=== PATIENT | male | born 1950 | race Caucasian/White ===

== ENCOUNTER 2017-09-30 15:39 | Emergency (ER) | payer MEDICARE, BC ==
[2017-09-30] MEDS ORDERED: Sodium Chloride 0.9% 10 ML Syringe FLUSH PRN (15:55)
[2017-09-30] MEDS ORDERED: Aspirin 81 MG Tab.Chew PO ONE (15:55)
[2017-09-30] MEDS ORDERED: Clopidogrel 75 MG Tab PO ONE (16:01)
[2017-09-30] MEDS: Nitroglycerin 0.4 MG Tab.SL SL PRN ×3 (16:10→16:28)
[2017-09-30] MEDS ORDERED: Heparin Sodium 5,000 Units/ML Vial IVPUSH ONE (16:18)
[2017-09-30] MEDS ORDERED: Heparin Sodium/D5W 500 ML ONE (16:23)
[2017-09-30 16:29] VITALS: BP 117/57
[2017-09-30] MEDS ORDERED: Heparin Sodium/D5W 25,000 UNITS/500 ML BAG IV SCH (16:30)
--- NOTE | 2017-09-30 16:43 | EDM.PDOC ---
ED HPI GENERAL MEDICAL PROBLEM - General Chief Complaint: Cardiovascular Problem Stated Complaint: CHEST PAIN Time Seen by Provider: 09/30/17 15:52 Source of Information: Reports: Patient History Limitations: Reports: No Limitations - History of Present Illness INITIAL COMMENTS - FREE TEXT/NARRATIVE: This patient comes in complaining of chest pain which started about an hour ago after he walked up some steps. He's been getting these pains for about the past 2 weeks anytime he exerts himself but it previously the pain would go away. Today the pain did not go away. It has subsided to just a little bit by the time he came to the ER and drop down to about a 5 out of 10. It feels like something standing on his chest. He has a history of coronary artery disease and tender 15 years ago had a catheterization which showed some blockage but collaterals had already formed so no intervention was done. About 5 years ago there was another cardiac catheter which was okay. He's not under any kind of treatment for coronary artery disease other than a statin Chest Pain Score (Numeric/FACES): 2 - Related Data Allergies Allergy/AdvReac Type Severity Reaction Status Date / Time No Known Allergies Allergy Verified 09/30/17 15:57 Home Meds: Home Meds Aspirin [Ecotrin] 325 mg PO DAILY 06/03/15 [History] Losartan Potassium 50 mg PO DAILY 06/03/15 [History] Metoprolol Succinate 25 mg PO DAILY 06/03/15 [History] Naproxen 500 mg PO Q12HR 06/03/15 [History] Omeprazole [priLOSEC OTC] 20 mg PO DAILY 06/03/15 [History] Simvastatin [Zocor] 20 mg PO BEDTIME 06/03/15 [History] valACYclovir [Valtrex] 2 gm PO BID PRN 06/03/15 [History] Cetirizine [ZyrTEC] 1 tab PO DAILY 09/30/17 [History] Gabapentin [Neurontin] 1 tab PO DAILY 09/30/17 [History] Past Medical History HEENT History: Reports: Cataract, Hard of Hearing Other HEENT History: deviated septum 25 years ago Cardiovascular History: Reports: CAD, Hypertension Respiratory History: Reports: Sleep Apnea, Other (See Below) Other Respiratory History: cpap machine Musculoskeletal History: Reports: Back Pain, Chronic, Fracture Endocrine/Metabolic History: Reports: Obesity/BMI 30+ Oncologic (Cancer) History: Reports: Basal Cell Carcinoma, Squamous Cell Carcinoma Other Dermatologic History: pre melonoma - Infectious Disease History Infectious Disease History: Reports: Chicken Pox, Measles, Mumps, Shingles - Past Surgical History HEENT Surgical History: Reports: Cataract Surgery, Other (See Below) Other HEENT Surgeries/Procedures: surgery for deviated septum. Other Cardiovascular Surgeries/Procedures: angio gramx2 Neurological Surgical History: Reports: Spinal Fusion Musculoskeletal Surgical History: Reports: Knee Replacement Other Musculoskeletal Surgeries/Procedures:: fusion of C3-C7 in two surgeries, right knee Social & Family History - Tobacco Use Smoking Status *Q: Never Smoker Years of Tobacco use: 20 Used Tobacco, but Quit: Yes Month Tobacco Last Used: september Hand Smoke Exposure: Yes - Alcohol Use Days Per Week of Alcohol Use: 3 Number of Drinks Per Day: 3 Total Drinks Per Week: 9 - Recreational Drug Use Recreational Drug Use: No ED ROS GENERAL - Review of Systems Review Of Systems: See Below Constitutional: Reports: No Symptoms HEENT: Reports: No Symptoms Respiratory: Reports: Shortness of Breath (With exertion) Cardiovascular: Reports: Chest Pain Endocrine: Reports: No Symptoms GI/Abdominal: Reports: No Symptoms : Reports: No Symptoms ED EXAM, GENERAL - Physical Exam Exam: See Below Exam Limited By: No Limitations General Appearance: Alert, Mild Distress, Obese Eye Exam: Bilateral Eye: Normal Inspection Throat/Mouth: Normal Oropharynx Respiratory/Chest: Lungs Clear Cardiovascular: Normal Peripheral Pulses, Regular Rate, Rhythm, No Murmur GI/Abdominal: Non-Tender Extremities: Normal Inspection Neurological: Alert, Oriented Skin Exam: Warm, Dry Course - Vital Signs Last Recorded V/S: Last Vital Signs Temp 36.1 C 09/30/17 15:40 Pulse 57 L 09/30/17 16:30 Resp 15 09/30/17 16:30 BP 117/57 L 09/30/17 16:30 Pulse Ox 95 09/30/17 16:30 - Orders/Labs/Meds Orders: Active Orders 24 hr Category Date Time Status EKG Documentation Completion [RC] ASDIRECTED Care 09/30/17 15:55 Active Heparin Sodium/D5W [Heparin 25,000 Units in D5W 500 ML] Med 09/30/17 16:30 Active 25,000 units in 500 ml IV TITRATE Sodium Chloride 0.9% [Saline Flush] Med 09/30/17 15:55 Active 10 ml FLUSH ASDIRECTED PRN Saline Lock Insert [OM.PC] Urgent Oth 09/30/17 15:54 Ordered EKG 12 Lead [EK] Urgent Ther 09/30/17 15:54 Ordered Medication Orders Heparin Sodium/Dextrose (Heparin 25,000 Units In D5w 500 Ml) 25,000 units in 500 mls @ 20 mls/hr IV TITRATE BOOKER PRN Reason: 1,000 UNITS/HR Last Admin: 09/30/17 16:25 Dose: 1,000 units/hr, 20 mls/hr Sodium Chloride (Saline Flush) 10 ml FLUSH ASDIRECTED PRN PRN Reason: Keep Vein Open Last Admin: 09/30/17 16:13 Dose: 10 ml Labs: Laboratory Tests 09/30/17 09/30/17 Range/Units 15:50 15:54 WBC 15.8 H (4.5-11.0) K/uL RBC 5.06 (4.30-5.90) M/uL Hgb 15.7 H (12.0-15.0) g/dL Hct 46.6 (40.0-54.0) % MCV 92 (80-98) fL MCH 31 (27-31) pg MCHC 34 (32-36) % Plt Count 184 (150-400) K/uL Neut % (Auto) 83 H (36-66) % Lymph % (Auto) 9 L (24-44) % Leon % (Auto) 9 H (2-6) % Eos % (Auto) 0 L (2-4) % Baso % (Auto) 0 (0-1) % Sodium 142 (140-148) mmol/L Potassium 3.9 (3.6-5.2) mmol/L Chloride 106 (100-108) mmol/L Carbon Dioxide 28 (21-32) mmol/L Anion Gap 8.4 (5.0-14.0) mmol/L BUN 18 (7-18) mg/dL Creatinine 0.9 (0.8-1.3) mg/dL Est Cr Clr Drug Dosing 86.22 mL/min Estimated GFR (MDRD) > 60 (>60) Glucose 129 H (74-106) mg/dL Calcium 8.7 (8.5-10.1) mg/dL Total Bilirubin 0.3 (0.2-1.0) mg/dL AST 17 (15-37) U/L ALT 31 (12-78) U/L Alkaline Phosphatase 80 (46-116) U/L Troponin I 0.062 H* (0.000-0.056) ng/mL Total Protein 7.1 (6.4-8.2) g/dL Albumin 3.9 (3.4-5.0) g/dL Globulin 3.2 (2.3-3.5) g/dL Albumin/Globulin Ratio 1.2 (1.2-2.2) Meds: Medications Generic Name Dose Route Start Last Admin Trade Name Freq PRN Reason Stop Dose Admin Heparin Sodium/Dextrose 25,000 units in 500 mls @ 20 mls/hr 09/30/17 16:30 16:25 Heparin 25,000 Units In D5w 500 Ml IV 1,000 units/hr TITRATE BOOKER 20 mls/hr 1,000 UNITS/HR Administration Sodium Chloride 10 ml 09/30/17 15:55 09/30/17 16:13 Saline Flush FLUSH 10 ml ASDIRECTED PRN Administration Keep Vein Open Discontinued Medications Generic Name Dose Route Start Last Admin Trade Name Freq PRN Reason Stop Dose Admin Aspirin 324 mg 09/30/17 15:55 09/30/17 16:08 Aspirin PO 09/30/17 15:56 324 mg ONETIME ONE Administration Clopidogrel Bisulfate 600 mg 09/30/17 16:01 09/30/17 16:15 Plavix PO 09/30/17 16:02 600 mg ONETIME ONE Administration Heparin Sodium (Porcine) 5,000 units 09/30/17 16:18 09/30/17 16:24 Heparin Sodium IVPUSH 09/30/17 16:19 5,000 units ONETIME ONE Administration Heparin Sodium/Dextrose Confirm 09/30/17 16:23 09/30/17 16:26 Heparin 25,000 Units In D5w 500 Ml Administered 09/30/17 16:24 Not Given Dose 500 mls @ as directed .ROUTE .STK-MED ONE Nitroglycerin 0.4 mg 09/30/17 15:56 09/30/17 16:28 Nitrostat SL 0.4 mg Q5M PRN Administration Chest Pain - Re-Assessments/Exams Free Text/Narrative Re-Assessment/Exam: 09/30/17 16:42 EKG showed sinus rhythm at 63 bpm. There is loss of R-wave height in V1 through V3. There is about 1-[address] depression in lateral leads. There is no ST elevation anywhere. Treatment course: EKG showed findings as above. The patient received aspirin 324 mg chewed. He also received 3 sublingual nitros. The pain was down to a 1 at the time the third one was administered. Brilenta was not available here so he received Plavix 600 mg orally. He also received heparin 5000 unit bolus then he'll receive a drip in the by EMS. Case was discussed with the diet consultant at [facility] in [place] as well as the hospitalist . Troponin returned at 0.062 (normal less than 0.056) information was relayed to Dr. Macias 09/30/17 16:49 Departure - Departure Time of Disposition: 16:50 Disposition: DC/Tfer to [facility] 02 Reason for Transfer *Q: Primary PCI Indicated Clinical Impression: Acute coronary syndrome Referrals: Siddharth Domínguez MD [Primary Care Provider] - Forms: ED Department Discharge - My Orders Last 24 Hours: My Active Orders 09/30/17 15:54 Saline Lock Insert [OM.PC] Urgent EKG 12 Lead [EK] Urgent 09/30/17 15:55 EKG Documentation Completion [RC] ASDIRECTED Sodium Chloride 0.9% [Saline Flush] 10 ml FLUSH ASDIRECTED PRN 09/30/17 16:30 Heparin Sodium/D5W [Heparin 25,000 Units in D5W 500 ML] 25,000 units in 500 ml IV TITRATE - Assessment/Plan Last 24 Hours: My Active Orders 09/30/17 15:54 Saline Lock Insert [OM.PC] Urgent EKG 12 Lead [EK] Urgent 09/30/17 15:55 EKG Documentation Completion [RC] ASDIRECTED Sodium Chloride 0.9% [Saline Flush] 10 ml FLUSH ASDIRECTED PRN 09/30/17 16:30 Heparin Sodium/D5W [Heparin 25,000 Units in D5W 500 ML] 25,000 units in 500 ml IV TITRATE
== END 2017-09-30 16:40 ==
LOC: JP.ED 15:39
DX: I24.9 Acute ischemic heart disease, unspecified (principal); I10 Essential (primary) hypertension; Z79.82 Long term (current) use of aspirin; Z79.899 Other long term (current) drug therapy
CPT/HCPCS: 36415; 80053; 84484; 85025; 93005; 96374; 99285; A9270; J1644; J7050; 93010; 99284

== ENCOUNTER 2017-10-14 01:34 | Emergency (ER) | payer MEDICARE, BC ==
[2017-10-14] MEDS ORDERED: Aspirin 81 MG Tab.Chew PO ONE (01:43)
[2017-10-14] MEDS ORDERED: Ondansetron 4 MG/2 ML SDV IVPUSH ONE (01:44)
[2017-10-14] MEDS ORDERED: Sodium Chloride 0.9% 1,000 ML IV SCH (01:45)
[2017-10-14] MEDS ORDERED: Alum Hydrox/Mag Hydrox/Simeth 15 ML, Lidocaine 2% 15 ML PO ONE ×2 (01:45)
--- NOTE | 2017-10-14 02:32 | EDM.PDOC ---
ED HPI GENERAL MEDICAL PROBLEM - General Chief Complaint: Chest Pain Stated Complaint: CHEST PAINS Time Seen by Provider: 10/14/17 01:45 Source of Information: Reports: Patient History Limitations: Reports: No Limitations - History of Present Illness INITIAL COMMENTS - FREE TEXT/NARRATIVE: pt hd 3 stents placed on Malka Almaraz, He developed chest pain tonight after eating a big meal of crab. he did vomit a large --=300cc emesis. He has pain in the epigastric area and rt upper abdoman. Onset: Today, Other ( Started about midnight. ) Duration: Hour(s): Location: Reports: Chest, Abdomen, Other ( Pt has pain in the upper abdoman and lower chest. ) Associated Symptoms: Reports: Chest Pain, Nausea/Vomiting epigastric Pain Score (Numeric/FACES): 3 - Related Data Allergies Allergy/AdvReac Type Severity Reaction Status Date / Time No Known Allergies Allergy Verified 10/14/17 01:43 Home Meds: Home Meds Aspirin [Ecotrin] 325 mg PO DAILY 06/03/15 [History] Losartan Potassium 50 mg PO DAILY 06/03/15 [History] Metoprolol Succinate 25 mg PO DAILY 06/03/15 [History] Naproxen 500 mg PO Q12HR 06/03/15 [History] Omeprazole [priLOSEC OTC] 20 mg PO DAILY 06/03/15 [History] Simvastatin [Zocor] 20 mg PO BEDTIME 06/03/15 [History] valACYclovir [Valtrex] 2 gm PO BID PRN 06/03/15 [History] Cetirizine [ZyrTEC] 1 tab PO DAILY 09/30/17 [History] Gabapentin [Neurontin] 1 tab PO DAILY 09/30/17 [History] Past Medical History HEENT History: Reports: Cataract, Hard of Hearing Other HEENT History: deviated septum 25 years ago Cardiovascular History: Reports: CAD, Hypertension, [place] Respiratory History: Reports: Sleep Apnea, Other (See Below) Other Respiratory History: cpap machine Musculoskeletal History: Reports: Back Pain, Chronic, Fracture Endocrine/Metabolic History: Reports: Obesity/BMI 30+ Oncologic (Cancer) History: Reports: Basal Cell Carcinoma, Squamous Cell Carcinoma Other Dermatologic History: pre melonoma - Infectious Disease History Infectious Disease History: Reports: Chicken Pox, Measles, Mumps, Shingles - Past Surgical History HEENT Surgical History: Reports: Cataract Surgery, Other (See Below) Other HEENT Surgeries/Procedures: surgery for deviated septum. Cardiovascular Surgical History: Reports: Coronary Artery Stent Other Cardiovascular Surgeries/Procedures: angio gramx2 Neurological Surgical History: Reports: Spinal Fusion Musculoskeletal Surgical History: Reports: Knee Replacement Other Musculoskeletal Surgeries/Procedures:: fusion of C3-C7 in two surgeries, right knee Social & Family History - Tobacco Use Smoking Status *Q: Never Smoker Years of Tobacco use: 20 Used Tobacco, but Quit: Yes Month Tobacco Last Used: september Hand Smoke Exposure: Yes - Caffeine Use Caffeine Use: Reports: Soda - Alcohol Use Days Per Week of Alcohol Use: 2 Number of Drinks Per Day: 3 Total Drinks Per Week: 6 - Recreational Drug Use Recreational Drug Use: No ED ROS GENERAL - Review of Systems Review Of Systems: See Below Constitutional: Reports: No Symptoms HEENT: Reports: No Symptoms Respiratory: Reports: No Symptoms Cardiovascular: Reports: No Symptoms Endocrine: Reports: No Symptoms GI/Abdominal: Reports: Abdominal Pain, Nausea, Vomiting, Other (lower chest pain , He had 3 stents placed [place]. ) : Reports: No Symptoms Musculoskeletal: Reports: Hand Pain Skin: Reports: No Symptoms ED EXAM, GENERAL - Physical Exam Exam: See Below Free Text/Narrative:: pt arrived with pain in his lower chest and upper abdoman. He had eaten a large meal of crab. Exam Limited By: No Limitations General Appearance: Alert, Moderate Distress Ears: Normal TMs Nose: Normal Inspection Throat/Mouth: Normal Inspection Head: Atraumatic Neck: Normal Inspection Respiratory/Chest: No Respiratory Distress Cardiovascular: Regular Rate, Rhythm GI/Abdominal: Other ( tender in the upper abdoman in the mid line and in the rt upper abdoman. ) (Male) Exam: Deferred Rectal (Males) Exam: Deferred Back Exam: Normal Inspection Extremities: Normal Inspection Neurological: Alert, Oriented, Normal Cognition Psychiatric: Anxious Course - Vital Signs Last Recorded V/S: Last Vital Signs Temp 36.2 C 10/14/17 01:44 Pulse 57 L 10/14/17 01:44 Resp 15 10/14/17 05:12 BP 134/64 10/14/17 05:12 Pulse Ox 92 L 10/14/17 05:12 - Orders/Labs/Meds Orders: Active Orders 24 hr Category Date Time Status EKG Documentation Completion [RC] ASDIRECTED Care 10/14/17 01:43 Active Abdomen Ltd [US] Stat Exams 10/14/17 02:47 Ordered Chest 1V Frontal [CR] Stat Exams 10/14/17 02:36 Taken Sodium Chloride 0.9% [Normal Saline] 1,000 ml Med 10/14/17 01:45 Active IV ASDIRECTED EKG 12 Lead [EK] Routine Ther 10/14/17 01:43 Ordered Medication Orders Sodium Chloride (Normal Saline) 1,000 mls @ 200 mls/hr IV ASDIRECTED BOOKER Last Admin: 10/14/17 01:58 Dose: 200 mls/hr Labs: Laboratory Tests 10/14/17 10/14/17 10/14/17 Range/Units 01:53 01:53 01:53 WBC 9.9 (4.5-11.0) K/uL RBC 4.80 (4.30-5.90) M/uL Hgb 14.4 (12.0-15.0) g/dL Hct 42.9 (40.0-54.0) % MCV 89 (80-98) fL MCH 30 (27-31) pg MCHC 34 (32-36) % Plt Count 327 (150-400) K/uL Neut % (Auto) 72 H (36-66) % Lymph % (Auto) 15 L (24-44) % [place] % (Auto) 10 H (2-6) % Eos % (Auto) 2 (2-4) % Baso % (Auto) 0 (0-1) % Sodium 142 (140-148) mmol/L Potassium 3.8 (3.6-5.2) mmol/L Chloride 104 (100-108) mmol/L Carbon Dioxide 26 (21-32) mmol/L Anion Gap 12.0 (5.0-14.0) mmol/L BUN 11 (7-18) mg/dL Creatinine 1.0 (0.8-1.3) mg/dL Est Cr Clr Drug Dosing TNP Estimated GFR (MDRD) > 60 (>60) Glucose 133 H (74-106) mg/dL Calcium 8.6 (8.5-10.1) mg/dL Total Bilirubin 0.3 (0.2-1.0) mg/dL AST 23 (15-37) U/L ALT 36 (12-78) U/L Alkaline Phosphatase 83 (46-116) U/L Creatine Kinase 76 (39-308) U/L Troponin I < 0.017 (0.000-0.056) ng/mL Total Protein 6.6 (6.4-8.2) g/dL Albumin 3.3 L (3.4-5.0) g/dL Globulin 3.3 (2.3-3.5) g/dL Albumin/Globulin Ratio 1.0 L (1.2-2.2) Lipase (73-393) U/L Urine Color Urine Appearance Urine pH (4.5-8.0) Ur Specific [place] (1.008-1.030) Urine Protein (NEGATIVE) mg/dL Urine Glucose (UA) (NEGATIVE) mg/dL Urine Ketones (NEGATIVE) mg/dL Urine Occult Blood (NEGATIVE) Urine Nitrite (NEGAITVE) Urine Bilirubin (NEGATIVE) Urine Urobilinogen (NORMAL) mg/dL Ur Leukocyte Esterase (NEGATIVE) Urine RBC (0-5) Urine WBC (0-5) Ur Epithelial Cells Amorphous Sediment Urine Bacteria Urine Mucus 10/14/17 10/14/17 10/14/17 Range/Units 01:57 02:48 06:01 WBC (4.5-11.0) K/uL RBC (4.30-5.90) M/uL Hgb (12.0-15.0) g/dL Hct (40.0-54.0) % MCV (80-98) fL MCH (27-31) pg MCHC (32-36) % Plt Count (150-400) K/uL Neut % (Auto) (36-66) % Lymph % (Auto) (24-44) % [place] % (Auto) (2-6) % Eos % (Auto) (2-4) % Baso % (Auto) (0-1) % Sodium (140-148) mmol/L Potassium (3.6-5.2) mmol/L Chloride (100-108) mmol/L Carbon Dioxide (21-32) mmol/L Anion Gap (5.0-14.0) mmol/L BUN (7-18) mg/dL Creatinine (0.8-1.3) mg/dL Est Cr Clr Drug Dosing Estimated GFR (MDRD) (>60) Glucose (74-106) mg/dL Calcium (8.5-10.1) mg/dL Total Bilirubin (0.2-1.0) mg/dL AST (15-37) U/L ALT (12-78) U/L Alkaline Phosphatase (46-116) U/L Creatine Kinase (39-308) U/L Troponin I < 0.017 (0.000-0.056) ng/mL Total Protein (6.4-8.2) g/dL Albumin (3.4-5.0) g/dL Globulin (2.3-3.5) g/dL Albumin/Globulin Ratio (1.2-2.2) Lipase 143 (73-393) U/L Urine Color Yellow Urine Appearance Clear Urine pH 5.0 (4.5-8.0) Ur Specific [place] 1.020 (1.008-1.030) Urine Protein Negative (NEGATIVE) mg/dL Urine Glucose (UA) Normal (NEGATIVE) mg/dL Urine Ketones Negative (NEGATIVE) mg/dL Urine Occult Blood Negative (NEGATIVE) Urine Nitrite Negative (NEGAITVE) Urine Bilirubin Negative (NEGATIVE) Urine Urobilinogen Normal (NORMAL) mg/dL Ur Leukocyte Esterase Negative (NEGATIVE) Urine RBC Not seen (0-5) Urine WBC Not seen (0-5) Ur Epithelial Cells Not seen Amorphous Sediment Not seen Urine Bacteria Not seen Urine Mucus Few Meds: Medications Generic Name Dose Route Start Last Admin Trade Name Cecilio PRN Reason Stop Dose Admin Sodium Chloride 1,000 mls @ 200 mls/hr 10/14/17 01:45 10/14/17 01:58 Normal Saline IV 200 mls/hr ASDIRECTED BOOKER Administration Discontinued Medications Generic Name Dose Route Start Last Admin Trade Name Frepetra PRN Reason Stop Dose Admin Aspirin 324 mg 10/14/17 01:43 10/14/17 02:45 Aspirin PO 10/14/17 01:44 324 mg ONETIME ONE Administration Al Hydroxide/Mg Hydroxide 15 0 ml 10/14/17 01:45 10/14/17 02:13 ml/ Lidocaine HCl 15 ml PO 10/14/17 01:46 30 ml ONETIME ONE Administration Ondansetron HCl 4 mg 10/14/17 01:44 10/14/17 01:57 Zofran IVPUSH 10/14/17 01:45 4 mg ONETIME ONE Administration - Re-Assessments/Exams Free Text/Narrative Re-Assessment/Exam: 10/14/17 02:34 pt had a normal trop. He vomited 300cc . He settled down and he was given a GI cocktail. 10/14/17 06:42 pt had a second trop whoich was completely normal. His GB had some sludge and there may have been a small stone. The GB wall was not thickened. There was no fluid around the GB. Departure - Departure Time of Disposition: 06:44 Disposition: Home, Self-Care 01 Condition: Fair Clinical Impression: Stomach discomfort, Gall bladder disease, History of coronary artery stent placement Referrals: Siddharth Domínguez MD [Primary Care Provider] - Forms: ED Department Discharge Care Plan Goals: rtc if problems, lite diet, continue same meds. - My Orders Last 24 Hours: My Active Orders 10/14/17 01:43 EKG Documentation Completion [RC] ASDIRECTED EKG 12 Lead [EK] Routine 10/14/17 01:45 Sodium Chloride 0.9% [Normal Saline] 1,000 ml IV ASDIRECTED 10/14/17 02:36 Chest 1V Frontal [CR] Stat 10/14/17 02:47 Abdomen Ltd [US] Stat - Assessment/Plan Last 24 Hours: My Active Orders 10/14/17 01:43 EKG Documentation Completion [RC] ASDIRECTED EKG 12 Lead [EK] Routine 10/14/17 01:45 Sodium Chloride 0.9% [Normal Saline] 1,000 ml IV ASDIRECTED 10/14/17 02:36 Chest 1V Frontal [CR] Stat 10/14/17 02:47 Abdomen Ltd [US] Stat
[2017-10-14 06:55] VITALS: BP 124/61
--- NOTE | 2017-10-15 10:14 | CR ---
Chest 1V Frontal HISTORY: Chest pain FINDINGS: Cardiac size and pulmonary vessels are normal. The lungs are clear. IMPRESSION: Negative AP chest.
== END 2017-10-14 07:02 | disposition home or self-care (01) ==
LOC: JP.ED 01:34
DX: K82.9 Disease of gallbladder, unspecified (principal); I10 Essential (primary) hypertension; Z95.5 Presence of coronary angioplasty implant and graft; Z79.899 Other long term (current) drug therapy; Z79.82 Long term (current) use of aspirin
CPT/HCPCS: 36415; 71045; 76705; 80053; 81001; 82550; 83690; 84484; 85025; 93005; 96361; 96374; 99285; A9270; J2405; J7040; 93010; 99283; J7030

== ENCOUNTER 2017-12-04 20:11 | Emergency (ER) | payer MEDICARE, BC ==
[2017-12-04] MEDS ORDERED: Ondansetron 4 MG/2 ML SDV IVPUSH ONE (20:35)
[2017-12-04] MEDS ORDERED: HYDROmorphone 1 MG/ML Syringe IVPUSH ONE ×2 (20:35→21:52)
--- NOTE | 2017-12-04 20:42 | EDM.PDOC ---
ED HPI GENERAL MEDICAL PROBLEM - General Chief Complaint: Gastrointestinal Problem Stated Complaint: ABDOMINAL PAIN Time Seen by Provider: 12/04/17 20:25 Source of Information: Reports: Patient, Family History Limitations: Reports: No Limitations - History of Present Illness INITIAL COMMENTS - FREE TEXT/NARRATIVE: 67-year-old male who is been having recurring epigastric pain in the evenings since October 14. That was his first episode, he was worked up thoroughly in the emergency room and found to have gallbladder sludge with a small stone impacted in the neck of the gallbladder. Since that time he has had 7 episodes, with the last 3 nights having significant pain. It improves during the day. He had a cardiology recheck today, discuss the symptoms and the tire building supervisor felt it was likely gastrointestinal and noncardiac. He ate at 2:00 and redeveloped pain at 5 PM. This is the "worst it's been". He tries antacids which doesn't help, he also tried nitroglycerin and also has no effect. The pain is very sharp, intense , epigastric and nonradiating. He has no history of abdominal surgeries. He did have cardiac stents in the past year and has been doing well. No fevers or chills. He is very nauseous but not vomiting. Location: Reports: Abdomen (Epigastric) Quality: Reports: Pressure, Sharp Severity: Severe Associated Symptoms: Reports: Loss of Appetite, Nausea/Vomiting. Denies: Chest Pain, Fever/Chills, Shortness of Breath Epigastric Pain Score (Numeric/FACES): 9 - Related Data Allergies Allergy/AdvReac Type Severity Reaction Status Date / Time No Known Allergies Allergy Verified 10/14/17 01:43 Home Meds: Home Meds Aspirin [Ecotrin] 81 mg PO DAILY 06/03/15 [History] Losartan Potassium 50 mg PO DAILY 06/03/15 [History] Metoprolol Succinate 25 mg PO DAILY 06/03/15 [History] Naproxen 500 mg PO Q12HR 06/03/15 [History] Omeprazole [priLOSEC OTC] 20 mg PO DAILY 06/03/15 [History] valACYclovir [Valtrex] 2 gm PO BID PRN 06/03/15 [History] Cetirizine [ZyrTEC] 1 tab PO DAILY 09/30/17 [History] Gabapentin [Neurontin] 1 tab PO TID 09/30/17 [History] Amoxicillin 2,000 mg PO ASDIRECTED PRN 12/04/17 [History] Clopidogrel [Plavix] 75 mg PO DAILY 12/04/17 [History] Nitroglycerin 0.4 mg SL ASDIRECTED PRN 12/04/17 [History] Spironolactone [Aldactone] 25 mg PO DAILY 12/04/17 [History] Ticagrelor [Brilinta] 90 mg PO DAILY 12/04/17 [History] Past Medical History HEENT History: Reports: Cataract, Hard of Hearing Other HEENT History: deviated septum 25 years ago Cardiovascular History: Reports: CAD, Hypertension, [place] Respiratory History: Reports: Sleep Apnea, Other (See Below) Other Respiratory History: cpap machine Musculoskeletal History: Reports: Back Pain, Chronic, Fracture Endocrine/Metabolic History: Reports: Obesity/BMI 30+ Oncologic (Cancer) History: Reports: Basal Cell Carcinoma, Squamous Cell Carcinoma Other Dermatologic History: pre melonoma - Infectious Disease History Infectious Disease History: Reports: Chicken Pox, Measles, Mumps, Shingles - Past Surgical History HEENT Surgical History: Reports: Cataract Surgery, Other (See Below) Other HEENT Surgeries/Procedures: surgery for deviated septum. Cardiovascular Surgical History: Reports: Coronary Artery Stent Other Cardiovascular Surgeries/Procedures: angio gramx2 Neurological Surgical History: Reports: Spinal Fusion Musculoskeletal Surgical History: Reports: Knee Replacement Other Musculoskeletal Surgeries/Procedures:: fusion of C3-C7 in two surgeries, right knee Social & Family History - Tobacco Use Smoking Status *Q: Never Smoker Years of Tobacco use: 20 Used Tobacco, but Quit: Yes Month Tobacco Last Used: september Second Hand Smoke Exposure: Yes - Caffeine Use Caffeine Use: Reports: Coffee - Alcohol Use Days Per Week of Alcohol Use: 2 Number of Drinks Per Day: 3 Total Drinks Per Week: 6 - Recreational Drug Use Recreational Drug Use: No ED ROS GENERAL - Review of Systems Review Of Systems: See Below Constitutional: Reports: Malaise. Denies: Fever, Chills HEENT: Reports: No Symptoms Respiratory: Denies: Shortness of Breath Cardiovascular: Denies: Chest Pain GI/Abdominal: Reports: Abdominal Pain, Nausea. Denies: Diarrhea, Vomiting : Reports: No Symptoms Skin: Reports: Diaphoresis Neurological: Reports: No Symptoms Psychiatric: Reports: No Symptoms ED EXAM, GI/ABD - Physical Exam Exam: See Below Exam Limited By: No Limitations General Appearance: Alert, Moderate Distress (Patient looks very uncomfortable) Eyes: Bilateral: Normal Appearance (No jaundice) Respiratory/Chest: No Respiratory Distress, Lungs Clear Cardiovascular: Regular Rate, Rhythm GI/Abdominal Exam: Normal Bowel Sounds, Soft, Tender (Patient is exquisitely tender with rebound and guarding in the right upper quadrant to epigastric area) Neurological: Alert, Oriented Psychiatric: Anxious Skin Exam: Warm, Dry Course - Vital Signs Last Recorded V/S: Last Vital Signs Temp 96.6 F 12/04/17 22:51 Pulse 81 12/04/17 22:51 Resp 16 12/04/17 22:51 BP 175/83 H 12/04/17 22:51 Pulse Ox 97 12/04/17 21:22 - Orders/Labs/Meds Orders: Active Orders 24 hr Category Date Time Status Abdomen Pelvis w Cont [CT] Stat Exams 12/04/17 21:11 Taken Labs: Laboratory Tests 12/04/17 12/04/17 Range/Units 20:35 20:35 WBC 14.8 H (4.5-11.0) K/uL RBC 4.76 (4.30-5.90) M/uL Hgb 14.5 (12.0-15.0) g/dL Hct 42.9 (40.0-54.0) % MCV 90 (80-98) fL MCH 31 (27-31) pg MCHC 34 (32-36) % Plt Count 163 (150-400) K/uL Neut % (Auto) 82 H (36-66) % Lymph % (Auto) 7 L (24-44) % [place] % (Auto) 11 H (2-6) % Eos % (Auto) 1 L (2-4) % Baso % (Auto) 0 (0-1) % Sodium 137 L (140-148) mmol/L Potassium 4.0 (3.6-5.2) mmol/L Chloride 103 (100-108) mmol/L Carbon Dioxide 25 (21-32) mmol/L Anion Gap 13.0 (5.0-14.0) mmol/L BUN 14 (7-18) mg/dL Creatinine 1.1 (0.8-1.3) mg/dL Est Cr Clr Drug Dosing 70.55 mL/min Estimated GFR (MDRD) > 60 (>60) Glucose 149 H (74-106) mg/dL Calcium 8.5 (8.5-10.1) mg/dL Total Bilirubin 0.7 D (0.2-1.0) mg/dL AST 20 (15-37) U/L ALT 33 (12-78) U/L Alkaline Phosphatase 81 (46-116) U/L Total Protein 6.5 (6.4-8.2) g/dL Albumin 3.2 L (3.4-5.0) g/dL Globulin 3.3 (2.3-3.5) g/dL Albumin/Globulin Ratio 1.0 L (1.2-2.2) Amylase 36 (25-115) U/L Lipase 126 (73-393) U/L Meds: Medications Discontinued Medications Generic Name Dose Route Start Last Admin Trade Name Freq PRN Reason Stop Dose Admin Fentanyl 100 mcg 12/04/17 20:58 12/04/17 21:05 Sublimaze IVPUSH 12/04/17 20:59 100 mcg ONETIME ONE Administration Fentanyl 100 mcg 12/04/17 21:14 12/04/17 21:18 Sublimaze IVPUSH 12/04/17 21:15 100 mcg ONETIME ONE Administration Fentanyl 50 mcg 12/04/17 23:03 12/04/17 23:21 Sublimaze IVPUSH 12/04/17 23:04 50 mcg ONETIME ONE Administration Hydromorphone HCl 1 mg 12/04/17 20:35 12/04/17 20:47 Dilaudid IVPUSH 12/04/17 20:36 1 mg ONETIME ONE Administration Hydromorphone HCl 1 mg 12/04/17 21:52 12/04/17 21:57 Dilaudid IVPUSH 12/04/17 21:53 1 mg ONETIME ONE Administration Sodium Chloride 1,000 mls @ 500 mls/hr 12/04/17 20:45 12/04/17 20:46 Normal Saline IV 500 mls/hr ASDIRECTED BOOKER Administration Sodium Chloride 80 mls @ 3 mls/sec 12/04/17 21:30 12/04/17 21:35 Normal Saline IV 3 mls/sec ASDIRECTED BOKOER Administration Sodium Chloride 1,000 mls @ 500 mls/hr 12/04/17 23:15 12/04/17 23:21 Normal Saline IV 500 mls/hr ASDIRECTED BOOKER Administration Iopamidol 150 ml 12/04/17 21:30 12/04/17 21:36 Isovue-300 (61%) IV 150 ml . DIRECTED BOOKER Administration Ondansetron HCl 4 mg 12/04/17 20:35 12/04/17 20:46 Zofran IVPUSH 12/04/17 20:36 4 mg ONETIME ONE Administration Sodium Chloride 10 ml 12/04/17 21:16 12/04/17 21:35 Saline Flush FLUSH 10 ml ASDIRECTED PRN Administration Keep Vein Open - Re-Assessments/Exams Free Text/Narrative Re-Assessment/Exam: 12/04/17 20:41 An IV was started, patient was given 4 mg of IV Zofran and 1 mg of IV Dilaudid. CBC, CMP, amylase and lipase were obtained. I reviewed his records from his October 14 visit, he did not have a CT scan at that time. 12/04/17 21:14 White count returned 14.8. His extended chemistry profile was very reassuring with all hepatic enzymes and alkaline phosphatase being normal. Amylase and lipase were normal as well. The pain was very persistent however, 100 g of fentanyl IV had to be given twice after the initial dose of Dilaudid. IV hydration was initiated and the patient was sent back for an abdominal and pelvis CT scan with IV contrast. 12/04/17 22:39 CT scan confirmed that the gallbladder is the likely source of pain. There appeared to be impaction at the neck of the gallbladder with distention. There were no other acute findings. His condition was discussed with surgery in [place], as well as the hospitalist and he was accepted for transfer. Departure - Departure Time of Disposition: 23:29 Disposition: DC/Tfer to Other Condition: Fair Clinical Impression: Abdominal pain, Cholecystitis - Discharge Information Instructions: Cholecystitis, [id number] Referrals: Siddharth Domínguez MD [Primary Care Provider] - Forms: ED Department Discharge Care Plan Goals: Patient is to be transferred by EMS to [facility] for admission for surgical consultation regarding cholelithiasis with developing cholecystitis - My Orders Last 24 Hours: My Active Orders 12/04/17 21:11 Abdomen Pelvis w Cont [CT] Stat - Assessment/Plan Last 24 Hours: My Active Orders 12/04/17 21:11 Abdomen Pelvis w Cont [CT] Stat
[2017-12-04] MEDS ORDERED: Sodium Chloride 0.9% 1,000 ML IV SCH ×2 (20:45→23:15)
[2017-12-04] MEDS ORDERED: fentaNYL 100 MCG/2 ML SDV IVPUSH ONE ×3 (20:58→23:03)
[2017-12-04] MEDS ORDERED: Sodium Chloride 0.9% 10 ML Syringe FLUSH PRN (21:16)
[2017-12-04] MEDS ORDERED: Iopamidol 612 MG/ML 150 ML Bottle IV SCH (21:30)
[2017-12-04] MEDS ORDERED: Sodium Chloride 0.9% 80 ML IV SCH (21:30)
[2017-12-04 22:52] VITALS: BP 175/83
== END 2017-12-04 23:29 | disposition other institution (70) ==
LOC: JP.ED 20:11
DX: K81.9 Cholecystitis, unspecified (principal); I10 Essential (primary) hypertension; I25.10 Atherosclerotic heart disease of native coronary artery without angina pectoris; G47.30 Sleep apnea, unspecified; Z95.5 Presence of coronary angioplasty implant and graft; Z87.891 Personal history of nicotine dependence; Z79.82 Long term (current) use of aspirin; Z79.02 Long term (current) use of antithrombotics/antiplatelets; Z79.899 Other long term (current) drug therapy
CPT/HCPCS: 36415; 74177; 80053; 82150; 83690; 85025; 99285; J1170; J2405; J3010; J7030; J7040; J7050; 99284

== ENCOUNTER 2025-01-13 18:35 | Emergency (ER) | payer MEDICARE, BC ==
[2025-01-13 19:29] VITALS: BP 163/64; PULSE 57
== END 2025-01-13 21:44 | disposition home or self-care (01) ==
LOC: JP.ED 18:35
DX: R60.0 Localized edema (principal); I10 Essential (primary) hypertension; I25.10 Atherosclerotic heart disease of native coronary artery without angina pectoris; E66.9 Obesity, unspecified; I25.2 Old myocardial infarction; Z79.899 Other long term (current) drug therapy; Z79.82 Long term (current) use of aspirin; Z79.02 Long term (current) use of antithrombotics/antiplatelets; Z79.2 Long term (current) use of antibiotics; Z68.35 Body mass index [BMI] 35.0-35.9, adult
CPT/HCPCS: 93971-LT; 99283